=== PATIENT | female | born 1980 | race Two or more races ===

== ENCOUNTER 2016-08-31 01:37 | Emergency (ER) | payer OTHER ==
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
== END 2016-08-31 04:35 | disposition home or self-care (01) ==
LOC: CFTX 01:37
DX: S13.4XXA Sprain of ligaments of cervical spine, initial encounter (principal); V49.10XA Passenger injured in collision with unspecified motor vehicles in nontraffic accident, initial encounter
CPT/HCPCS: 72040; 99283